=== PATIENT | female | born 1975 | race African-American/Black ===

== ENCOUNTER 2025-01-16 11:01 | Emergency (ER) | payer MEDICAID, OTHER ==
[~2025-01-16] VITALS: Ht 167.6 cm; Wt 65.0 kg
[2025-01-16 11:02] VITALS: O2SAT 98
[2025-01-16 13:12] LABS: BASOPHILS % 1.0 % (0.0-2.0); EOSINOPHILS % 1.1 % (0.0-5.0); HEMATOCRIT. 38.2 % (36.0-48.0); HEMOGLOBIN. 12.9 g/dL (12.0-16.0); LYMPHOCYTES % 25.7 % (20.0-50.0); MEAN PLATELET VOLUME 8.6 fl (7.4-10.4); MONOCYTES % 7.7 % (2.0-8.0); NEUTROPHILS % 64.5 % (40.0-76.0); PLATELET 294 x1000/uL (130-400); RED BLOOD CELL COUNT 4.46 mill/uL (4.2-5.4); RED CELL DISTRIBUTION WIDTH 14.0 % (11.6-14.6)
[2025-01-16 13:23] LABS: INR 1.2
[2025-01-16 13:28] LABS: CREATININE 0.9 mg/dL (0.6-1.0); UREA NITROGEN BLOOD 9 mg/dL (9-23)
[2025-01-16 13:29] LABS: ETHANOL BLOOD < 10 mg/dL (<10)
[2025-01-16 13:30] LABS: ASPARTATE AMINOTRANSFERASE 12 IU/L (<34); BILIRUBIN DIRECT 0.2 mg/dL (<=3.0); BILIRUBIN TOTAL 0.5 mg/dL (0.1-1.0); PROTEIN TOTAL 7.4 g/dL (6.0-8.3)
[2025-01-16 13:54] LABS: CLARITY URINE CLEAR (CLEAR); COLOR URINE YELLOW (YELLOW); GLUCOSE URINE NEGATIVE (NEGATIVE); KETONES URINE TRACE (NEGATIVE); LEUKOCYTE ESTERASE URINE NEGATIVE (NEGATIVE); NITRITE URINE NEGATIVE (NEGATIVE); OCCULT BLOOD URINE NEGATIVE (NEGATIVE); PH URINE 6.5 (4.5-8.0); PROTEIN URINE TRACE (NEGATIVE); SPECIFIC GRAVITY URINE 1.020 (1.005-1.030); UROBILINOGEN URINE 1.0 E.U./dL (0.2-1.0)
[2025-01-16 14:04] LABS: BACTERIA URINE 2+; RBC URINE 0-2 /hpf (0-2); SQUAMOUS EPITHELIAL CELL URINE 2+ /lpf (RARE/1+); WBC URINE 0-2 /hpf (0-2); YEAST URINE NONE SEEN
[2025-01-16 14:10] LABS: *AMPHETAMINES SCREEN URINE NEGATIVE (NEGATIVE); *BARBITURATES SCREEN URINE NEGATIVE (NEGATIVE); *BENZODIAZEPINES SCREEN URINE NEGATIVE (NEGATIVE); *COCAINE SCREEN URINE NEGATIVE (NEGATIVE)
[2025-01-16 14:11] LABS: CANNABINOID URINE SCREEN NEGATIVE (NEGATIVE); ECSTASY MDMA SCREEN URINE CONF.TEST INDICATED (NEGATIVE); METHADONE URINE SCREEN NEGATIVE (NEGATIVE); OPIATES URINE SCREEN PRESUMPTIVE POSITIVE (NEGATIVE); PHENCYCLIDINE URINE SCREEN NEGATIVE (NEGATIVE)
[2025-01-16] MEDS: IBUPROFEN 600MG TABLET PO ONE (16:39)
[2025-01-16 17:15] VITALS: BP 145/97; PULSE 109; RESP 18; TEMP 36.8; O2SAT 98
== END 2025-01-16 17:16 | disposition home or self-care (01) ==
LOC: ER 11:01
DX: R51.9 Headache, unspecified (principal); R53.1 Weakness; I10 Essential (primary) hypertension; I67.82 Cerebral ischemia; R07.89 Other chest pain; Z86.73 Personal history of transient ischemic attack (TIA), and cerebral infarction without residual deficits; Z79.899 Other long term (current) drug therapy
CPT/HCPCS: 36415; 71045; 80048; 80076; 80305; 80320; 81003; 85025; 93005; 99285; G0480

== ENCOUNTER 2025-01-17 12:20 | Emergency (ER) | payer MEDICAID ==
[~2025-01-17] VITALS: Ht 162.6 cm; Wt 70.0 kg
[2025-01-17 12:26] VITALS: O2SAT 99
[2025-01-17] MEDS: KETOROLAC 30MG/ML VIAL IV ONE (13:23)
[2025-01-17] MEDS: HYDROCODONE/ACETAMINOPHEN 10/325MG TABLET PO ONE (15:11)
[2025-01-17 19:25] VITALS: BP 152/91; PULSE 79; RESP 16; TEMP 36.8; O2SAT 100
== END 2025-01-17 19:46 | disposition home or self-care (01) ==
LOC: ER 12:20
DX: R51.9 Headache, unspecified (principal); F41.9 Anxiety disorder, unspecified; I10 Essential (primary) hypertension; Z86.73 Personal history of transient ischemic attack (TIA), and cerebral infarction without residual deficits
CPT/HCPCS: 81025; 74176; 96374; 99285; J1885; Z7610

== ENCOUNTER 2025-04-26 08:29 | Emergency (ER) | payer MEDICAID ==
[~2025-04-26] VITALS: Ht 170.2 cm; Wt 68.0 kg
[2025-04-26] MEDS: ACETAMINOPHEN 325MG TABLET PO ONE (09:07)
[2025-04-26 10:12] LABS: INFLUENZA TYPE A Presumptive Negative (Pres. Neg.)
[2025-04-26 10:13] LABS: INFLUENZA TYPE B Presumptive Negative (Pres. Neg.)
[2025-04-26] MEDS ORDERED: TOPUD PO (10:17)
[2025-04-26] MEDS: ALBUTEROL (0.083%) 2.5MG/3ML NEB HHN SCH (11:14)
[2025-04-26 11:16] VITALS: PULSE 53; RESP 18; O2SAT 97
[2025-04-26 11:40] VITALS: BP 169/94; PULSE 78; RESP 18; TEMP 36.8; O2SAT 99
== END 2025-04-26 12:05 | disposition home or self-care (01) ==
LOC: ER 08:29
DX: I11.9 Hypertensive heart disease without heart failure (principal); Z86.73 Personal history of transient ischemic attack (TIA), and cerebral infarction without residual deficits; Z88.0 Allergy status to penicillin; Z88.5 Allergy status to narcotic agent; Z20.822 Contact with and (suspected) exposure to COVID-19
CPT/HCPCS: 81025; 87804 ×2; 71045; 93005; 94644; 99285; 87426; Z7610; 94070; 94664